=== PATIENT | female | born 1950 | race Caucasian/White ===

== ENCOUNTER 2016-10-26 02:24 | Day surgery (SDC) | payer OTHER ==
[~2016-10-26] VITALS: Ht 162.6 cm; Wt 78.0 kg
[~2016-10-26 02:24] MED LIST: ATEN25TA PO; FLUO20CA25 PO; GLIP1TAB4 PO; LEVO88TA4 PO; OMEP40CA36 PO; SIMV40TA5 PO; TRAM50TA2 PO
[2016-10-26] MEDS ORDERED: fentaNYL-PF 50 mCg/mL 2 mL Inj IVPUSH PRN (06:00)
[2016-10-26] MEDS ORDERED: Sodium Chloride LOK Flush 10 mL Syringe IV PRN (06:00)
[2016-10-26 11:01] VITALS: BP 128/76; PULSE 62; RESP 17; O2SAT 98
[2016-10-26] MEDS ORDERED: 0.9% Sodium Chloride 1,000 ML IV ONE (12:01)
[2016-10-26 12:09] VITALS: BP 111/64; PULSE 60; RESP 14; O2SAT 94
--- NOTE | 2016-10-26 12:10 | PCM.ENDEGD ---
EGD Date of Service: Oct 26, 2016 Physician Cedric Pono MD Pre Procedure Diagnosis: Reflux diarrhea Post Procedure Dx & Findings: Possible Best's esophagus, antral deformity with gastritis, duodenal polyp Procedure Esophagogastroduodenoscopy PROCEDURE IN DETAIL: After proper sedation, Olympus video endoscope was inserted into patient's mouth and esophagus was successfully intubated. Scope introduced esophagus. Esophagus showed normal shiny whitish mucosa consistent with squamous cell component. Z line was irregular at 40 cm from the incisors. There was 2 cm length of salmon-colored mucosa consistent with Best's esophagus. 4 quadrant biopsies of temperature. Narrow banding used. There was no ulcer mass erosion nodule. Scope further events to the stomach. Stomach showed normal shiny mucosa with normal appearing rugae folds without any ulcer mass erosion up to the antrum. In the antrum, there was some irritation atrophy with some deformity. Biopsies obtained. Cardia fundus body antrum pylorus were all visualized. Retroflexion was done. Stomach was easily inflated and deflatable using air. Scope further events to the distal duodenum. Duodenum revealed normal villous structures with normal appearing folds without any mass ulcer erosion. 5 biopsies obtained. Less than 1 mm duodenal polyp noted. This was resected completely using cold forceps. Impression Possible Best's esophagus, antral deformity with gastritis, duodenal polyp Recommendation Follow-up with the physician's orthopaedic physician assistant. Presedation Assessment Risks and Benefits Informed consent was obtained from the patient after all risks and benefits including but not limited to drug reaction, infection, pain, bleeding, perforation, as well as alternatives were discussed. Patient monitoring Continuous pulse oximetry, cardiac monitoring, blood pressure monitoring, IV access, and oxygen at 2L per nasal cannula. Periprocedural Fentanyl: Fentanyl 100mcg Incrementally Midazolam: Midazolam 5mg Incrementally Complications There were no periprocedural complications identified. Post Procedure Plan Post Procedure Recommendations 1. Restrict activities today. 2. Resume normal activities in the morning. 3. Resume medications. 4. GERD behavioral modification: - Avoid fatty, acidic, spicy, large meals - Do not lie down after meals - Do not eat or drink anything for at least 2 1/2 hours before going to bed at night - Discontinue tobacco and alcohol - Decrease or avoid caffeine - Avoid chocolate and mints - Decrease weight - Avoid aspirin and non steroidal anti-inflammatory agents (NSAID) such as Aleve, Advil, Mobic, Naproxen, Ibuprofen, etc 5. Add proton pump inhibitor. Take 30 minutes before 1st meal of the day. 6. Patient informed of normal post procedure side effects as bloating, drowsiness, blood streaking in the stool 7. If gastric biopsy reveal H.pylori, continue with appropriate treatment 8. If small bowel biopsy reveals celiac, continue with appropriate treatment 9. Please don't hesitate to call me with any questions Cedric Poon MD Oct 26, 2016 12:10
--- NOTE | 2016-10-26 12:12 | PCM.ENDCOL ---
Colonoscopy Date of Service: Oct 26, 2016 Physician Cedric Poon MD Pre Procedure Diagnosis: Screening change in bowel patterns Post Procedure Dx & Findings: Polyp hemorrhoids diverticular Procedure Colonoscopy PROCEDURE IN DETAIL: Prep adequate Withdrawal time 8 minutes After unremarkable rectal examination the Olympus video colonoscope was inserted patient's anal canal and was advanced to cecum. Landmarks were identified including the ileocecal valve and appendiceal orifice. Scope further since the TI. It showed normal villous structures without any ulcer mass erosions. Scope was withdrawn systematically. Visualized colonic mucosa showed healthy shiny mucosa with normal healthy-appearing vasculature. In the transverse colon, there was a 1 mm polyp which was removed completely using cold forceps. Sigmoid colon had medium-sized diverticula in sigmoid numbers. Random biopsies obtained from the cecum to the rectum. In the rectum retroflexion was done which showed hemorrhoids. Anal canal was inspected carefully on the way out and hemorrhoids noted. Impression Normal TI polyp x1 was completely removable Diverticula Hemorrhoids Recommendation Repeat colonoscopy 5 years Diverticular diet Presedation Assessment Risks and Benefits Informed consent was obtained from the patient after all risks and benefits including but not limited to drug reaction, infection, pain, bleeding, perforation, as well as alternatives were discussed. Patient monitoring Continuous pulse oximetry, cardiac monitoring, blood pressure monitoring, IV access, and oxygen at 2L per nasal cannula. Complications There were no periprocedural complications identified. Post Procedure Plan Post Procedure Recommendations 1. Restrict activities today. 2. Resume normal activities in the morning. 3. Resume medications. 4. Patient informed of normal post procedure side effects as bloating, drowsiness, blood streaking in the stool. 5. average risk CRCS. If colon polyps come back as: -Hyperplastic- can repeat colonoscopy in 10 years -Tubular adenoma- repeat colonoscopy in 5 years -Tubulovillous/villous adenoma- repeat colonoscopy in 3 years -If any dysplasia- return to clinic as soon as possible 6. Please don't hesitate to call me with any questions. Cedric Poon MD Oct 26, 2016 12:11
[2016-10-26 12:19] VITALS: BP 98/58; PULSE 66; RESP 16; O2SAT 95
[2016-10-26 12:26] VITALS: BP 111/67; PULSE 66; RESP 16; O2SAT 94
--- NOTE | 2016-10-28 15:02 | PATH ---
SURGICAL PATHOLOGY Attending Physician:Cedric Poon M.D. CASE STATUS: Signed Out PATIENT NAME: NORRIS VAIL PID: [id number] : 1950 DATE COLLECTED:10/26/2016 23:37 SPECIMEN: 1: Duodenum, Biopsy 2: Duodenum, Biopsy 3: Stomach, Antrum, Biopsy 4: Esophagus, Biopsy 5: Colon, Biopsy 6: Colon, Polyp CLINICAL HISTORY: 1). DUODENAL POLYP 2). DUODENAL BIOPSY 3). ANTRUM BIOPSY 4). DISTAL ESOPHAGUS BIOPSY 5). RANDOM COLON BIOPSY 6). TRANSVERSE POLYP FINAL DIAGNOSIS: 1.DUODENAL POLYP: CHANGES CONSISTENT WITH SMALL TUBULAR ADENOMA. Negative for malignancy. 2.DUODENAL BIOPSY: FRAGMENTS OF NORMAL-APPEARING SMALL BOWEL MUCOSA. Normal delicate mucosal villi present. Negative for significant inflammation, dysplasia and malignancy. 3.GASTRIC ANTRUM BIOPSY: MILD CHRONIC GASTRITIS INVOLVING ANTRAL MUCOSA. Negative for evidence of Helicobacter on H&E stain. Negative for intestinal metaplasia. Negative for dysplasia and malignancy. 4.DISTAL ESOPHAGUS BIOPSY: SQUAMOUS MUCOSA AND GASTRIC CARDIA-TYPE MUCOSA, NEGATIVE FOR SPECIALIZED METAPLASIA OF CHATMAN' S-TYPE ESOPHAGUS. Negative for dysplasia and malignancy. Negative for squamous intraepithelial eosinophils. 5.RANDOM COLON BIOPSIES: FRAGMENTS OF NORMAL-APPEARING COLON MUCOSA. Negative for significant architectural distortion. Negative for significant inflammation, dysplasia and malignancy. 6.TRANSVERSE COLON POLYP: CHANGES CONSISTENT WITH SMALL TUBULAR ADENOMA. ICD10 K29.70 GROSS DESCRIPTION: The specimen is received in 6 formalin filled containers labeled with the patient's name. 1). The specimen is sublabeled "duodenal polyp" and consists of 2 portions of tissue which aggregate to 0.2 x 0.2 x 0.2 CM. The specimen is totally submitted in cassette 1A. 2). The specimen is sublabeled "duodenal" and consists of 5 tiny portions of tissue which aggregate to 0.3 x 0.3 x 0.3 CM. The specimen is entirely submitted in cassette 2A. 3). The specimen is sublabeled "antrum" and consists of 2 portions of tissue which aggregate to 0.3 x 0.3 x 0.2 CM. The specimen is entirely submitted in cassette 3A. 4). The specimen is sublabeled "distal esophagus" and consists of 2 portions of tissue which aggregate to 0.3 x 0.3 x 0.2 CM. The specimen is entirely submitted in cassette 4A. 5). The specimen is sublabeled "random colon" and consists of multiple portions of tissue which aggregate to 0.4 x 0.4 x 0.2 CM. The specimen is entirely submitted in cassette 5A. 6). The specimen is sublabeled "transverse polyp" and consists of a 0.2 x 0.2 x 0.2 CM. The specimen is entirely submitted in cassette 6A. 10/27/2016 DAC MICRO DESCRIPTION: See diagnosis. ICD-9 CODES: CPT CODES: 1: 01740 2: 18846 3: 01252 4: 32144 5: 59916 6: 37713 Electronically Signed Out Gagandeep Hartley MD [facility] Pathology [facility] [address], [place] [address] Technical component performed at [facility], [facility] [address], [address]
== END 2016-10-26 23:59 | disposition home or self-care (01) ==
LOC: END 02:24
PROVIDERS: ATTEND Internal Medicine
DX: D12.3 Benign neoplasm of transverse colon (principal); K64.9 Unspecified hemorrhoids; K57.30 Diverticulosis of large intestine without perforation or abscess without bleeding; K29.50 Unspecified chronic gastritis without bleeding; K31.7 Polyp of stomach and duodenum; R19.4 Change in bowel habit; K21.9 Gastro-esophageal reflux disease without esophagitis; I10 Essential (primary) hypertension; E78.5 Hyperlipidemia, unspecified; E11.9 Type 2 diabetes mellitus without complications; E03.9 Hypothyroidism, unspecified; M54.5 Low back pain; Z79.84 Long term (current) use of oral hypoglycemic drugs
CPT/HCPCS: 43239; 45380; 99153; G0500; J2250; J3010; J7030